=== PATIENT | female | born 1995 | race Caucasian/White ===

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

== ENCOUNTER 2018-04-13 09:28 | Observation (INO) ==
[2018-04-13] MEDS ORDERED: SODIUM CHLORIDE 0.9% 1000ML 1,000 ML IV STA (09:50)
[2018-04-13 10:05] LABS: Basophils # (auto) 0.02 K/uL (0-0.2); Basophils % (auto) 0.2 %; Eosinophils # (auto) 0.06 K/uL (0-0.5); Eosinophils % (auto) 0.7 %; Hematocrit (blood only) 45.4 % (37-47); Hemoglobin 15.9 g/dL (12.0-16.0); Immature Granulocytes # (auto) 0.01 K/uL (0.00-0.02); Immature Granulocytes % (auto) 0.1 %; Lymphocytes # (auto) 1.67 K/uL (1.2-3.4); Mean Corpuscular Volume 87.3 fL (80-100); Mean Platelet Volume 10.3 fL (7.4-10.4); Monocytes # (auto) 0.59 K/uL (0.11-0.59); Monocytes % (auto) 7.1 %; Neutrophils # (auto) 5.99 K/uL (1.4-6.5); Neutrophils % (auto) 71.9 %; Platelet Count 221 K/uL (130-400); RDW Coefficient of Variation 12.7 % (11.5-14.5); RDW Standard Deviation 40.8 fL (36.4-46.3); White Blood Count 8.34 K/uL (4.8-10.8)
[2018-04-13 10:06] LABS: Appearance Urine Cloudy (Clear); Bacteria Urine Automated 1+ (Negative); Color Urine Dark Yellow; Epithelial Cell Urine Auto >30 /lpf (0-5); Glucose Urine UA Negative (Negative); Ketones Urine Trace (Negative); Leukocyte Esterase Urine Trace (Negative); Nitrite Urine Positive (Negative); Protein Urine 1+ (Negative); Specific Gravity Urine 1.027 (1.000-1.030); Urobilinogen Urine Positive (Negative); pH Urine 6.5 (4.5-7.5)
[2018-04-13 10:08] LABS: Bilirubin Urine Negative (Negative); Ictotest Urine Negative (Negative)
[2018-04-13 10:24] LABS: Albumin Level 4.2 gm/dl (3.4-5.0); Calcium 9.3 mg/dl (8.5-10.1); Creatinine Clr Calc Pharmacy 86.3 ml/min; Est GFR (African American) 107.4; Est GFR (Non-African American) 92.6; Potassium 3.3 mmol/L (3.5-5.1)
[2018-04-13 10:27] LABS: Bilirubin,Total 0.6 mg/dl (0.2-1); Globulin 4.4 gm/dl (2.5-4.0); Total Protein 8.6 gm/dl (6.4-8.2)
[2018-04-13] MEDS ORDERED: ACETAMINOPHEN 1000 MG/100 ML IV IV STA (11:15)
[2018-04-13] MEDS ORDERED: IOVERSOL 100ml IV PRN (12:23)
--- NOTE | 2018-04-13 12:31 | CT Scan Report ---
CT abd pelvis oral and IV con CLINICAL HISTORY: RLQ abdominal pain COMPARISON STUDY: None. TECHNIQUE: The patient was scanned following administration of dilute oral contrast, and in a dynamic helical fashion during intravenous administration of 94 cc of Optiray 320. A dose lowering techniqu e was utilized adhering to the principles of ALARA. CT DOSE: 393.71 mGycm FINDINGS: Lower chest: The heart is normal in size and configuration, without pericardial effusion. The lung ba ses and pleural spaces are clear. Liver: The contrast-enhanced liver is normal in size, contour, and attenuation. There is no intrahepa tic biliary ductal dilatation. The hepatic veins and portal veins are patent. Gallbladder: Unremarkable. Spleen: Normal in size and attenuation. Pancreas: Unremarkable. Adrenal glands: Unremarkable. Kidneys: There is symmetric renal cortical enhancement. The kidneys are normal in size without hydron ephrosis. Bowel: There are no transition zones to indicate bowel obstruction. There is no acute diverticulitis. The appendix is dilated and fluid-filled measuring up to 16 mm in diameter. There is moderate periap pendiceal fat stranding. There is an appendicolith present. The findings are indicative of acute appe ndicitis. Peritoneum: There is no intraperitoneal free air or abdominal ascites. Vasculature: The abdominal aorta is normal in course and caliber. Adenopathy: None. Pelvic viscera: The bladder, and pelvic viscera are unremarkable. Skeletal structures: No destructive osseous lesions are seen. IMPRESSION: 1. Significantly inflamed dilated fluid-filled appendix with a 5 mm appendicolith at appendiceal base . The findings are indicative of acute appendicitis and surgical consultation is recommended Electronically signed by: Mak Schreiber M.D. 04/13/2018 12:29 PM
[2018-04-13] MEDS ORDERED: CIPROFLOXACIN 400 MG/200 ML BAG IV STA (12:56)
--- NOTE | 2018-04-13 12:56 | History & Physical Report ---
Date of Service April 13, 2018 Assessment & Plan (1) Appendicitis: acute appendicitis- for laparoscopic appendectomy, possible open operation. History of Present Illness Primary Care Provider: Soniya Chahal, in ER with 2-3 days of abd pain- dx'd with acute appendicitis CT scan confirmed Allergies Allergy/AdvReac Type Severity Reaction Status Date / Time Penicillins Allergy Intermediate hives Verified 04/13/18 10:23 Home Medications Home Medications Medication Instructions Recorded Confirmed Type medroxyprogesterone 150 mg IM Q3M 04/13/18 04/13/18 History propranolol 60 mg PO DAILY 04/13/18 04/13/18 History Past Med/Surg History Social History Feels Safe at Home: Yes Smoking Status: Never smoker Physical Exam 2 Vital Signs (Past 24 Hours): Last Vital Signs Temp 36.9 C 04/13/18 09:34 Pulse 82 04/13/18 11:51 Resp 20 04/13/18 11:51 BP 105/68 04/13/18 11:51 Pulse Ox 99 04/13/18 11:51 Constitutional: well developed and well nourished Eyes: PERRL, conjunctivae normal, anicteric sclerae Respiratory: normal respiratory effort; no respiratory distress Cardiovascular: Rate/Rhythm: regular rate and regular rhythm Gastrointestinal (Abdomen): Percussion/Palpation: + abdomen tender, + guarding and abdomen soft Skin: no rashes, warm and dry Psychiatric: Orientation: alert Results & Data Medications Administered Ioversol (Optiray 320 100ml) 94 ml IV ONCE PRN PRN Reason: Interaction Checking Stop: 04/17/18 12:22 Last Admin: 04/13/18 12:24 Dose: 94 ml
[2018-04-13] MEDS ORDERED: CIPROFLOXACIN 400MG / 200ML D5W IV ONE (13:04)
[2018-04-13] MEDS ORDERED: ROCURONIUM BROMIDE 10 MG/ML 5 ML VIAL ONE (13:09)
[2018-04-13] MEDS ORDERED: DEXAMETHASONE SOD INJ 4 MG/ML VIAL ONE (13:09)
[2018-04-13] MEDS ORDERED: MIDAZOLAM HCL 1 MG/ML 2ML VIAL ONE (13:09)
[2018-04-13] MEDS ORDERED: ONDANSETRON INJ 2 MG/ML 2 ML VIAL ONE (13:09)
[2018-04-13] MEDS ORDERED: SUCCINYLCHOLINE CHLORIDE 20 MG/ML 10 ML VIAL ONE (13:09)
[2018-04-13] MEDS ORDERED: GLYCOPYRROLATE 0.2 MG/ML VIAL ONE (13:09)
[2018-04-13] MEDS ORDERED: PROPOFOL IV EMULSION 10 MG/ML 20 ML VIAL IV ONE (13:09)
[2018-04-13] MEDS ORDERED: fentaNYL citrate 100 MCG/2 ML VIAL ONE ×2 (13:09→14:11)
[2018-04-13] MEDS ORDERED: LIDOCAINE HCL 2% 2 ML VIAL/AMP(20MG/ML) INFIL ONE (13:09)
[2018-04-13] MEDS ORDERED: NEOSTIGMINE METHYLSULFATE 5 MG/5 ML SYR ONE (13:09)
[2018-04-13] MEDS ORDERED: BUPIVACAINE 0.5 % 5 MG/1 ML MPF 30ML VIAL ONE (13:14)
[2018-04-13] MEDS ORDERED: metroNIDAZOLE 500 MG/100 ML BAG IV STA (13:15)
[2018-04-13] MEDS ORDERED: fentaNYL citrate 100 MCG/2 ML VIAL IV PRN (13:31)
[2018-04-13] MEDS ORDERED: DEXAMETHASONE SOD INJ 4 MG/ML VIAL IV PRN (13:31)
[2018-04-13] MEDS ORDERED: KETOROLAC 30 MG/ML VIAL IV PRN (13:31)
[2018-04-13] MEDS ORDERED: ONDANSETRON INJ 2 MG/ML 2 ML VIAL IV PRN ×2 (13:31→16:35)
[2018-04-13] MEDS ORDERED: ePHEDrine sulfate 50 MG/ML AMP IV PRN (13:31)
[2018-04-13] MEDS ORDERED: HYDROmorphone INJ 2 MG/ML SYR/VIAL IV PRN (13:31)
[2018-04-13] MEDS ORDERED: ATROPINE SULFATE 0.1 MG/ML 10ML SYR IV PRN (13:31)
--- NOTE | 2018-04-13 13:41 | Emergency Department Note ---
History of Present Illness General Chief Complaint: Abdominal Pain Stated Complaint: ABDOMINAL PAIN Source: patient Mode of arrival: ambulatory Limitations: no limitations History of Present Illness Provider Complaint: abdominal pain Onset (ago): 3 day(s) Pain Consistency: constant Location: RLQ Radiation: suprapubic Severity: moderate Maximum Pain Intensity: 6 Current Pain Intensity: 6 Quality: + aching Relieved By: + rest Exacerbated By: + movement Context: no foreign travel, no possible food poisoning, no sick contacts, no recent antibiotic use, no recent surgery/procedure, no recent injury and no history of similar episodes Associated Symptoms: + nausea, + vomiting and + chills; no diarrhea, no fever, no constipation, no dysuria and no hematuria Treatments prior to arrival: none This is a 23-year-old female patient presents emergency department today, ambulatory, complaining of right lower quadrant abdominal pain. The patient states on Monday evening, the pain began. This was associated with nausea and vomiting at that time. She states the nausea and vomiting has subsided, but the pain remains. She denies any fever, but does report chills. She states the pain initially was periumbilical, but is now in the right lower quadrant. She states it radiates across the suprapubic region. She states there is no aggravating or alleviating factors. Her last bowel movement was yesterday and was small, but otherwise normal. Last menstrual period was unknown, as the patient gets a Depakote shot. She is taken no medications for her symptoms. She does still have her appendix. She rates her pain 6/10 and describes it as achy and sharp. The patient's last meal was last night. Related Data Patient Confirmed : No Home Medications Home Medications Medication Instructions Recorded Confirmed Type medroxyprogesterone 150 mg IM Q3M 04/13/18 04/13/18 History propranolol 60 mg PO DAILY 04/13/18 04/13/18 History Allergies Allergy/AdvReac Type Severity Reaction Status Date / Time Penicillins Allergy Intermediate hives Verified 04/13/18 10:23 Past Med/Surg History Medical History Generalized headaches Social History Feels Safe at Home: Yes Smoking Status: Never smoker Review of Systems A total of 10 systems reviewed and were otherwise negative Physical Exam 2 Vital Signs: Vital Signs - 24 hr 04/13/18 09:34 04/13/18 09:54 04/13/18 10:19 Temperature 36.9 C Temperature Source Oral Sepsis Recent Feve r Within 48 Hours No Sepsis Action Take n by Nursing No Action Required Pulse Rate 79 Pulse Rate [Finger ] 74 Respiratory Rate 18 16 Blood Pressure 127/80 Blood Pressure [Ri ght Arm] 120/79 Blood Pressure Moon n 95 Blood Pressure Moon n [Right Arm] 92 Pulse Oximetry 99 99 98 Oxygen Delivery Me thod Room Air Room Air Room Air 04/13/18 11:51 04/13/18 13:18 Temperature Temperature Source Sepsis Recent Feve r Within 48 Hours Sepsis Action Take n by Nursing Pulse Rate Pulse Rate [Finger ] 82 100 H Respiratory Rate 20 16 Blood Pressure Blood Pressure [Ri ght Arm] 105/68 124/76 Blood Pressure Moon n Blood Pressure Moon n [Right Arm] 80 92 Pulse Oximetry 99 100 Oxygen Delivery Me thod Room Air Room Air Physical Exam: VITALS: Vitals are noted on the nurse's note and reviewed by myself. Vital signs stable. GENERAL: This is a 23-year-old white female, in no acute distress, nondiaphoretic, well-developed well-nourished. SKIN: The skin was without rashes, erythema, edema, or bruising. There is no tenting of the skin. Capillary reflex less than 2 seconds. HEAD: Normocephalic atraumatic. EARS: External auditory canals clear, tympanic membranes pearly mccarthy without erythema or effusion bilaterally. EYES: Pupils equal round and reactive to light and accommodation. Conjunctivae without injection, sclerae without icterus. Extraocular movements intact. NOSE: Patent, turbinates without inflammation or discharge. No sinus tenderness. MOUTH: Mucous membranes moist. Tonsils are not enlarged. Pharynx without erythema or exudate. Uvula midline. Airway patent. Tongue does not deviate. NECK: Supple without nuchal rigidity. No lymphadenopathy. No thyromegaly. Cervical spine is nontender. No JVD. HEART: Regular rate and rhythm without murmurs gallops or rubs. LUNGS: Clear to auscultation bilaterally without wheezes, rales or rhonchi. No dullness to percussion. No retractions or accessory muscle use. ABDOMEN: Positive bowel sounds x 4. Normal tympanic percussion. Suprapubic and right lower quadrant tenderness to palpation over McBurney's point. Referred tenderness with palpation of the left lower quadrant. Soft, without masses or organomegaly. Robin sign negative. No guarding. Positive rebound tenderness. MUSCULOSKELETAL: No muscle atrophy, erythema, or edema noted. Full range of motion without joint tenderness in all extremities. No tenderness to palpation. Normal gait. Strength 5/5 throughout. NEURO: Patient was alert and oriented to person place and time. Normal sensation to light and sharp touch. Deep tendon reflexes 2+ throughout. No focal neurological deficits. Course The patient was seen and evaluated as above. IV access obtained, labs drawn. The patient was medicated with IV normal saline solution and IV Tylenol for pain. Imaging performed and reviewed by myself and radiologist as above. Labs reviewed by myself. I discussed the findings with the patient at bedside. I discussed the case with Dr. Moon, general surgeon. He did agree to see and evaluate the patient. The patient was taken to the OR for appendectomy. Administered Medications Ioversol (Optiray 320 100ml) 94 ml IV ONCE PRN PRN Reason: Interaction Checking Stop: 04/17/18 12:22 Last Admin: 04/13/18 12:24 Dose: 94 ml Discontinued Medications Acetaminophen (Ofirmev) 1,000 mg IV NOW STA Stop: 04/13/18 11:16 Last Admin: 04/13/18 11:24 Dose: 1,000 mg Ciprofloxacin (Cipro) Confirm Administered Dose 400 mg IV .STK-MED ONE Stop: 04/13/18 13:05 Last Admin: 04/13/18 13:12 Dose: 400 mg Sodium Chloride (Nss 1000ml) 1,000 mls @ 999 mls/hr IV .Q1H1M STA Stop: 04/13/18 10:50 Last Infusion: 04/13/18 11:24 Dose: 0 mls/hr Admin: 04/13/18 10:19 Dose: 999 mls/hr Medical Decision Making Differential Diagnosis + peptic ulcer disease, + biliary pathology, + UTI, + obstruction, + mesenteric ischemia, + aortic pathology, + infections, + inflammatory bowel disease, + renal colic, + ectopic (female), + ovarian torsion (female), + tubo- ovarian abscesses (female), + pelvic inflammatory disease (female), + abdominal pain, + appendicitis, + calculus of kidney, + constipation, + diverticulitis, + endometriosis, + gastroenteritis, + pancreatitis and + small bowel obstruction Home Medications Current Medication List: was personally reviewed by me Laboratory Data Attestation: I reviewed the patient's lab results. No leukocytosis, anemia, thrombocytopenia. Renal, hepatic function, and electrolytes without significant abnormality. Lipase negative. Urine test negative. Urinalysis concerning for possible infection with bacteria nitrates. Result diagrams: 04/13/18 09:48 04/13/18 09:48 Lab Results 04/13/18 04/13/18 04/13/18 Range/Units 09:48 09:48 09:48 WBC 8.34 (4.8-10.8) K/uL RBC 5.20 (4.2-5.4) M/uL Hgb 15.9 (12.0-16.0) g/dL Hct 45.4 (37-47) % MCV 87.3 (80-100) fL MCH 30.6 (25-34) pg MCHC 35.0 (32-36) g/dL RDW Std Deviation 40.8 (36.4-46.3) fL RDW Coeff of Nuris 12.7 (11.5-14.5) % Plt Count 221 (130-400) K/uL MPV 10.3 (7.4-10.4) fL Immature Gran % (Auto) 0.1 % Neut % (Auto) 71.9 % Lymph % (Auto) 20.0 % Pershing % (Auto) 7.1 % Eos % (Auto) 0.7 % Baso % (Auto) 0.2 % Immature Gran # (Auto) 0.01 (0.00-0.02) K/uL Neut # (Auto) 5.99 (1.4-6.5) K/uL Lymph # (Auto) 1.67 (1.2-3.4) K/uL Pershing # (Auto) 0.59 (0.11-0.59) K/uL Eos # (Auto) 0.06 (0-0.5) K/uL Baso # (Auto) 0.02 (0-0.2) K/uL Sodium 136 (136-145) mmol/L Potassium 3.3 L (3.5-5.1) mmol/L Chloride 104 (98-107) mmol/L Carbon Dioxide 26 (21-32) mmol/L Anion Gap 6.0 (3-11) BUN 6 L (7-18) mg/dl Creatinine 0.89 (0.6-1.2) mg/dl Est Cr Clr Drug Dosing 86.3 ml/min Est GFR ( Amer) 107.4 Est GFR (Non-Af Amer) 92.6 BUN/Creatinine Ratio 7.0 L (10-20) Glucose 94 (70-99) mg/dl Calcium 9.3 (8.5-10.1) mg/dl Total Bilirubin 0.6 (0.2-1) mg/dl AST 58 H (15-37) U/L ALT 85 H (12-78) U/L Alkaline Phosphatase 124 H (45-117) U/L Total Protein 8.6 H (6.4-8.2) gm/dl Albumin 4.2 (3.4-5.0) gm/dl Globulin 4.4 H (2.5-4.0) gm/dl Albumin/Globulin Ratio 1.0 (0.9-2) Lipase 141 (73-393) U/L Urine Color Urine Appearance (Clear) Urine pH (4.5-7.5) Ur Specific Jansen (1.000-1.030) Urine Protein (Negative) Urine Glucose (UA) (Negative) Urine Ketones (Negative) Urine Blood (Negative) Urine Nitrite (Negative) Urine Bilirubin (Negative) Urine Urobilinogen (Negative) Ur Leukocyte Esterase (Negative) Urine WBC (Auto) (0-5) /hpf Urine RBC (Auto) (0-4) /hpf U Hyaline Cast (Auto) (0-5) /lpf U Epithel Cells (Auto) (0-5) /lpf Urine Bacteria (Auto) (Negative) POC Ur Test NEG (NEG) 04/13/18 Range/Units 09:48 WBC (4.8-10.8) K/uL RBC (4.2-5.4) M/uL Hgb (12.0-16.0) g/dL Hct (37-47) % MCV (80-100) fL MCH (25-34) pg MCHC (32-36) g/dL RDW Std Deviation (36.4-46.3) fL RDW Coeff of Nuris (11.5-14.5) % Plt Count (130-400) K/uL MPV (7.4-10.4) fL Immature Gran % (Auto) % Neut % (Auto) % Lymph % (Auto) % Pershing % (Auto) % Eos % (Auto) % Baso % (Auto) % Immature Gran # (Auto) (0.00-0.02) K/uL Neut # (Auto) (1.4-6.5) K/uL Lymph # (Auto) (1.2-3.4) K/uL Pershing # (Auto) (0.11-0.59) K/uL Eos # (Auto) (0-0.5) K/uL Baso # (Auto) (0-0.2) K/uL Sodium (136-145) mmol/L Potassium (3.5-5.1) mmol/L Chloride (98-107) mmol/L Carbon Dioxide (21-32) mmol/L Anion Gap (3-11) BUN (7-18) mg/dl Creatinine (0.6-1.2) mg/dl Est Cr Clr Drug Dosing ml/min Est GFR ( Amer) Est GFR (Non-Af Amer) BUN/Creatinine Ratio (10-20) Glucose (70-99) mg/dl Calcium (8.5-10.1) mg/dl Total Bilirubin (0.2-1) mg/dl AST (15-37) U/L ALT (12-78) U/L Alkaline Phosphatase (45-117) U/L Total Protein (6.4-8.2) gm/dl Albumin (3.4-5.0) gm/dl Globulin (2.5-4.0) gm/dl Albumin/Globulin Ratio (0.9-2) Lipase (73-393) U/L Urine Color Dark Yellow Urine Appearance Cloudy H (Clear) Urine pH 6.5 (4.5-7.5) Ur Specific Jansen 1.027 (1.000-1.030) Urine Protein 1+ H (Negative) Urine Glucose (UA) Negative (Negative) Urine Ketones Trace H (Negative) Urine Blood 1+ H (Negative) Urine Nitrite Positive H (Negative) Urine Bilirubin Negative (Negative) Urine Urobilinogen Positive H (Negative) Ur Leukocyte Esterase Trace H (Negative) Urine WBC (Auto) 10-30 H (0-5) /hpf Urine RBC (Auto) 0-4 (0-4) /hpf U Hyaline Cast (Auto) 1-5 (0-5) /lpf U Epithel Cells (Auto) >30 H (0-5) /lpf Urine Bacteria (Auto) 1+ H (Negative) POC Ur Test (NEG) Imaging Data Radiologist's Impression: CT abd pelvis oral and IV con CLINICAL HISTORY: RLQ abdominal pain COMPARISON STUDY: None. TECHNIQUE: The patient was scanned following administration of dilute oral contrast, and in a dynamic helical fashion during intravenous administration of 94 cc of Optiray 320. A dose lowering technique was utilized adhering to the principles of ALARA. CT DOSE: 393.71 mGycm FINDINGS: Lower chest: The heart is normal in size and configuration, without pericardial effusion. The lung bases and pleural spaces are clear. Liver: The contrast-enhanced liver is normal in size, contour, and attenuation. There is no intrahepatic biliary ductal dilatation. The hepatic veins and portal veins are patent. Gallbladder: Unremarkable. Spleen: Normal in size and attenuation. Pancreas: Unremarkable. Adrenal glands: Unremarkable. Kidneys: There is symmetric renal cortical enhancement. The kidneys are normal in size without hydronephrosis. Bowel: There are no transition zones to indicate bowel obstruction. There is no acute diverticulitis. The appendix is dilated and fluid-filled measuring up to 16 mm in diameter. There is moderate periappendiceal fat stranding. There is an appendicolith present. The findings are indicative of acute appendicitis. Peritoneum: There is no intraperitoneal free air or abdominal ascites. Vasculature: The abdominal aorta is normal in course and caliber. Adenopathy: None. Pelvic viscera: The bladder, and pelvic viscera are unremarkable. Skeletal structures: No destructive osseous lesions are seen. IMPRESSION: 1. Significantly inflamed dilated fluid-filled appendix with a 5 mm appendicolith at appendiceal base. The findings are indicative of acute appendicitis and surgical consultation is recommended Electronically signed by: Mak Schreiber M.D. 04/13/2018 12:29 PM Blood Pressure Blood Pressure Findings: Normal blood pressure MDM Narrative This 23-year-old female patient presents emergency department today complaining of right lower quadrant abdominal pain. The pain began periumbilically and has now migrated to the right lower quadrant. She does have positive referred and rebound tenderness on examination. Labs did not show any leukocytosis. The patient has been afebrile. CT scan of the abdomen and pelvis with IV and oral contrast does show a significantly inflamed, dilated, fluid-filled appendix with a 5 mm appendicolith at the appendiceal base. This is consistent with an acute appendicitis. I contacted the general surgeon. He did see and evaluate the patient. The patient was taken to the OR for appendectomy. Please see Dr. Moon's dictation regarding ongoing management care of this patient. The chart was completed utilizing [employer] Speech voice recognition software. Grammatical errors, random word insertions, pronoun errors, and incomplete sentences are an occasional consequence of this system due to software limitations, ambient noise, and hardware issues. Any formal questions or concerns about the content, text, or information contained within the body of this dictation should be directly addressed to the provider for clarification. Impression & Plan Acute appendicitis Discharge Plan Visit Data *Final* Discharge Date/Time: 04/13/18 13:22 Chief Complaint: Abdominal Pain Stated Complaint: ABDOMINAL PAIN ED Provider: Ap Blunt ED Midlevel Provider: Keeley Miller Discharge Problem: Acute appendicitis Patient Disposition: Still a Patient Discharge Instructions Interventions: ED Discharge Assessment Last Done: 04/13/18 13:22
--- NOTE | 2018-04-13 13:46 | Anesthesiology Consultation ---
Date of Service April 13, 2018 Assessment & Plan Chart Review Chart Review: Acceptable Risk for Surgery and Patient NOT seen in Pre Admission Testing ASA ASA2E Proposed Anesthesia Anesthesia Type: General Risk / Benefits Reviewed With: PT / POA / Parent / Guardian, Accepts Plan and Informed Consent Obtained NPO Date Last Intake of Fluids: 04/13/18 Time Last Intake of Fluids: 12:00 Last Intake of Fluids Comment: CT contrast at 1200 Date Last Intake of Solids: 04/12/18 Time Last Intake of Solids: 18:00 History Surgery Operation Date: 04/13/18 09:15 Proposed Procedures p Laparoscopic Appendectomy - Maxim Moon MD, FACS Height/Weight Height: 5 ft 2 in Weight: 61.6 kg Allergies Allergy/AdvReac Type Severity Reaction Status Date / Time Penicillins Allergy Intermediate hives Verified 04/13/18 10:23 Medications Home Medications Medication Instructions Recorded Confirmed Last Taken medroxyprogesterone 150 mg IM Q3M 04/13/18 04/13/18 Unknown propranolol 60 mg PO DAILY 04/13/18 04/13/18 Unknown Active Medications Generic Name Dose Route Start Last Admin Trade Name Freq PRN Reason Stop Dose Admin Ioversol 94 ml 04/13/18 12:23 04/13/18 12:24 Optiray 320 100ml IV 04/17/18 12:22 94 ml ONCE PRN Administration Interaction Checking Past Medical History Medical History Generalized headaches Social History Smoking Status: Never smoker Physical Exam Vital Signs Last Vital Signs Temp 37.1 C 04/13/18 13:38 Pulse 92 H 04/13/18 13:38 Resp 16 04/13/18 13:38 BP 115/80 04/13/18 13:38 Pulse Ox 100 04/13/18 13:38 ENMT Mouth: no TMJ abnormality Thyromental Distance: > or= 3.5 Finger Breadths Mallampati Class: II Neck normal visual inspection Respiratory Auscultation: lungs clear to auscultation bilaterally Cardiovascular Rate/Rhythm: regular rate and regular rhythm Neurologic moves all extremities Psychiatric Orientation: alert and oriented x 3 Testing Laboratory Results 04/13/18 09:48 04/13/18 09:48 Urine Color Dark Yellow 04/13/18 09:48 Urine Appearance Cloudy (Clear) H 04/13/18 09:48 Urine pH 6.5 (4.5-7.5) 04/13/18 09:48 Ur Specific [place] 1.027 (1.000-1.030) 04/13/18 09:48 Urine Protein 1+ (Negative) H 04/13/18 09:48 Urine Glucose (UA) Negative (Negative) 04/13/18 09:48 Urine Ketones Trace (Negative) H 04/13/18 09:48 Urine Nitrite Positive (Negative) H 04/13/18 09:48 Ur Leukocyte Esterase Trace (Negative) H 04/13/18 09:48 Urine WBC (Auto) 10-30 /hpf (0-5) H 04/13/18 09:48 Urine RBC (Auto) 0-4 /hpf (0-4) 04/13/18 09:48 U Hyaline Cast (Auto) 1-5 /lpf (0-5) 04/13/18 09:48 U Epithel Cells (Auto) >30 /lpf (0-5) H 04/13/18 09:48 Urine Bacteria (Auto) 1+ (Negative) H 04/13/18 09:48 04/13/18 09:48 POC Ur Test NEG
[2018-04-13] MEDS ORDERED: ESMOLOL HCL INJ 10 MG/ML 10ML VIAL IV ONE (14:16)
[2018-04-13] MEDS ORDERED: ACETAMINOPHEN 1,000 MG/100 ML VIAL IV ONE (15:00)
--- NOTE | 2018-04-13 15:00 | Operative Report ---
Post Operative Report Pre & Post Diagnosis Operation Date: 04/13/18 09:15 Pre-Op Diagnosis: Acute Appendicitis Post-Op Diagnosis: Acute Appendicitis same, severe Procedure Operation Date: 04/13/18 09:15 Actual Procedures p Laparoscopic Appendectomy(Not Applicable) - Maxim Moon MD, FACS same Surgeon Maxim Moon MD, FACS Soft Crab Shedder nurses Estimated Blood Loss 20 Findings Consistent with Post-Op Diagnosis Specimens appendix Description of Procedure see dictated note I attest to the content of the Intraoperative Record and any orders documented therein. Any exceptions are noted below.
--- NOTE | 2018-04-13 15:15 | Operative Report ---
DATE OF OPERATION: 04/13/2018 NAME OF OPERATION: Laparoscopic appendectomy. PREOPERATIVE DIAGNOSIS: Acute appendicitis. POSTOPERATIVE DIAGNOSIS: Acute appendicitis. STAFF SURGEON: Maxim Moon MD ANESTHESIA: General. DESCRIPTION OF PROCEDURE: The patient was brought in the operating room and placed on the operating table in supine position. Her abdomen was prepped and draped in usual fashion. Pneumatic stockings, orogastric tube were placed. 0.5% plain Marcaine was used to anesthetize all incisions. An incision was made in the upper part of the umbilicus, carrying dissection down to the fascia, placing a Veress needle producing pneumoperitoneum. An 11 mm port was placed at this level and then under visualization, a 5 mm port placed suprapubically and a 12 mm port placed in the left lower quadrant. The appendix was retrocecal and adherent. It was inflamed. The base of the appendix was visible and dissected free and transected using the Endo-SCOOTER stapler. Then, using additional loads, the mesoappendix was transected as well as using 10 mm clips. The appendix was dissected away from the retrocecal area. It was very adherent. It was not ruptured. The appendix was placed in an Endobag, and after appropriate irrigation and hemostasis, the Endobag was removed through the left lower quadrant site. All ports removed. The fascia in the left lower quadrant and umbilical area closed using interrupted 0 Vicryl suture. Skin reapproximated using subcuticular 4-0 Monocryl. Dermabond was used at the umbilicus and suprapubic area and Steri-Strips in the left lower quadrant. The patient transferred to the recovery room in stable condition. I attest to the content of the Intraoperative Record and any orders documented therein. Any exception s are noted below.
--- NOTE | 2018-04-13 15:55 | Anesthesiology Progress Note ---
Date of Service April 13, 2018 Anesthesia Post Procedure Vital Signs Vital Signs: Temp Pulse Pulse Resp BP BP Pulse Ox 04/13/18 15:51 37.0 C 72 16 104/75 100 04/13/18 15:40 60 21 100 04/13/18 15:36 61 22 100 04/13/18 15:35 61 18 108/73 100 04/13/18 15:30 62 18 100/69 100 04/13/18 15:25 62 17 101/73 100 04/13/18 15:20 63 16 100 04/13/18 15:15 66 14 100 04/13/18 15:11 65 14 100 04/13/18 15:07 36.3 C L 68 14 105/73 100 04/13/18 13:38 37.1 C 92 H 16 115/80 100 04/13/18 13:18 100 H 16 124/76 100 04/13/18 12:41 60 23 91 04/13/18 11:51 82 20 105/68 99 04/13/18 10:19 74 16 120/79 98 04/13/18 09:54 99 04/13/18 09:34 36.9 C 79 18 127/80 99 Pain Intensity Abdomen: Pain Intensity: 0 Notes Mental Status: alert / awake / arousable Patient Amnestic to Procedure: Yes Nausea / Vomiting: adequately controlled Pain: adequately controlled Airway Patency, RR, SpO2: stable & adequate BP & HR: stable & adequate Hydration State: stable & adequate Anesthetic Complications: no major complications apparent
[2018-04-13] MEDS ORDERED: PROMETHAZINE HCL 12.5 MG in SODIUM CHLORIDE 0.9% 50 ML IV PRN (16:35)
[2018-04-13] MEDS ORDERED: HYDROCODONE/ACETAMOPHEN 5/325MG TAB PO PRN ×2 (16:35)
[2018-04-13] MEDS ORDERED: MoRPHine SULFATE 4 MG/ML 1 ML CARP\\VIAL IV PRN (16:35)
[2018-04-13] MEDS ORDERED: MoRPHine SULFATE 2 MG/ML CARP IV PRN (16:35)
[2018-04-13] MEDS ORDERED: IBUPROFEN 600 MG TAB PO PRN (16:35)
[2018-04-13] MEDS: SODIUM CHLORIDE 0.9% 500 ML IV SCH ×2 (16:51→22:16)
[2018-04-13] MEDS: metroNIDAZOLE 500 MG/100 ML BAG IV SCH (22:16)
[2018-04-14] MEDS: SODIUM CHLORIDE 0.9% 500 ML IV SCH (05:14)
[2018-04-14] MEDS: metroNIDAZOLE 500 MG/100 ML BAG IV SCH ×3 (05:15→22:24)
--- NOTE | 2018-04-14 06:01 | Progress Note ---
Date of Service April 14, 2018 Assessment & Plan (1) Acute appendicitis: appendix was severely inflamed and adherent cont IV atbx- adv diet- probable d/c tomorrow Acute appendicitis type: with localized peritonitis Appendicitis abscess presence: without abscess Appendicitis gangrene presence: without gangrene Appendicitis perforation presence: without perforation Qualified Code (s): K35.30 - Acute appendicitis with localized peritonitis, without perforation or gangrene Subjective doing well- elva some liquids Physical Exam 2 Vital Signs (Past 24 Hours): Last Vital Signs Temp 37.1 C 04/14/18 04:00 Pulse 80 04/14/18 04:00 Resp 16 04/14/18 04:00 BP 102/64 04/14/18 04:00 Pulse Ox 97 04/14/18 04:00 abd- soft
[2018-04-14] MEDS: PROPRANOLOL HCL 60 MG LA CAP PO SCH (09:40)
--- NOTE | 2018-04-14 10:00 | Anesthesiology Progress Note ---
Date of Service April 14, 2018 Anesthesia Post Procedure Vital Signs Vital Signs: Temp Pulse Pulse Resp BP BP Pulse Ox 04/14/18 07:30 37.0 C 84 18 102/63 96 04/14/18 04:00 37.1 C 80 16 102/64 97 04/13/18 22:55 36.9 C 79 16 100/61 98 04/13/18 19:39 37.3 C 69 18 102/67 99 04/13/18 18:26 37.4 C 82 18 107/67 98 04/13/18 17:26 36.7 C 79 16 111/74 97 04/13/18 16:55 36.6 C 72 16 110/73 98 04/13/18 16:05 37.0 C 61 17 106/76 100 04/13/18 15:55 61 17 106/76 100 04/13/18 15:51 37.0 C 60 72 17 104/75 100 04/13/18 15:50 61 17 111/76 100 04/13/18 15:45 62 22 104/75 100 04/13/18 15:40 60 21 100 04/13/18 15:36 61 22 100 04/13/18 15:35 61 18 108/73 100 04/13/18 15:30 62 18 100/69 100 04/13/18 15:25 62 17 101/73 100 04/13/18 15:20 63 16 100 04/13/18 15:15 66 14 100 04/13/18 15:11 65 14 100 04/13/18 15:07 36.3 C L 68 14 105/73 100 04/13/18 13:38 37.1 C 92 H 16 115/80 100 04/13/18 13:18 100 H 16 124/76 100 04/13/18 12:41 60 23 91 04/13/18 11:51 82 20 105/68 99 04/13/18 10:19 74 16 120/79 98 Pain Intensity Abdomen: Pain Intensity: 4 Notes Mental Status: alert / awake / arousable Patient Amnestic to Procedure: Yes Nausea / Vomiting: adequately controlled Pain: adequately controlled Airway Patency, RR, SpO2: stable & adequate BP & HR: stable & adequate Hydration State: stable & adequate Anesthetic Complications: no major complications apparent Notes: POD #1 s/p lap appendectomy. Doing well, has been up and ambulating, tolerating PO without problems. No complaints. VSS
[2018-04-15] MEDS: metroNIDAZOLE 500 MG/100 ML BAG IV SCH (06:30)
--- NOTE | 2018-04-15 07:41 | Discharge Summary ---
PRINCIPAL DIAGNOSIS: Acute appendicitis. PROCEDURES: The patient underwent laparoscopic appendectomy. HISTORY OF PRESENT ILLNESS: The patient is a 23-year-old female presented to the Emergency Room with acute abdominal pain and found with acute appendicitis. HOSPITAL COURSE: She was taken to the operating room where she underwent laparoscopic appendectomy. She tolerated it very well. Her appendix was relatively inflamed and necrotic, but did not have surrounding abscess. She has been kept on IV antibiotics. She has done well and is felt stable for discharge home today on p.o. antibiotics to be followed in the surgical clinic.
[2018-04-15] MEDS: PROPRANOLOL HCL 60 MG LA CAP PO SCH (07:56)
== END 2018-04-15 12:28 | disposition home or self-care (01) ==
LOC: ED 09:28 → OR 13:22 → 3W 13:22 → OR 13:31

== ENCOUNTER 2022-04-18 06:56 | Inpatient (IN) ==
--- NOTE | 2022-04-12 15:11 | Anesthesiology Consultation ---
Date of Service April 12, 2022 Assessment & Plan (1) Encounter for pre-operative examination: - anesthesia concerns: with first patient had a spinal anesthesia and was able to feel her abdomen being cut and then was placed under general anesthesia. - COVID screening: Per per assessment nurse on 04/12/2022: Travel screen negative, no known COVID-19 positive contacts or current COVID-19 related symptoms in past 2 weeks. To surgeon's discretion if preop COVID testing is needed. Chart Review Chart Review: Acceptable Risk for Surgery and Patient NOT seen in Pre Admission Testing History Surgery Operation Date: 04/18/22 09:05 Proposed Procedures p Section (Delivery of Baby Through Abdominal Incision) - Kelley Barton MD, FACOG Height/Weight Height: 5 ft 2 in Weight: 67.132 kg Allergies Allergy/AdvReac Type Severity Reaction Status Date / Time Penicillins Allergy Intermediate hives Verified 04/12/22 14:05 Medications Home Medications Medication Instructions Recorded Confirmed Last Taken prenat.vits,gabriela,[id number] 1 tab PO DAILY 09/06/21 04/12/22 Unknown Past Medical History Medical History (Updated 04/12/22 @ 15:09 by Maggy Salomon PA-C) ADHD (attention deficit hyperactivity disorder) no medications Depression pt denies Generalized headaches History of anesthesia reaction with first patient had a spinal anesthesia and was able to feel her abdomen being cut and then was placed under general anesthesia. History of migraine Past Family History Family History Grandmother Cancer Other No family history of adverse response to anesthesia Denies family history of Ovarian cancer Prostate cancer Myocardial infarction Breast cancer Colorectal cancer Past Surgical History Surgical History (Updated 04/12/22 @ 15:11 by Maggy Salomon PA-C) Hx of appendectomy 04/13/1819 Grade 1 view, MAC 3, ETT 7. S/P section 05/18/20 S/P wisdom tooth extraction Social History Smoking Status: Never smoker Do You Dip or Chew Tobacco: No Hx Alcohol Use: Yes alcohol intake frequency: a few times a month Hx Substance Use: No
--- NOTE | 2022-04-14 09:11 | History & Physical Report ---
Date of Service April 14, 2022 Assessment & Plan (1) Previous delivery affecting , antepartum: (2) with 39 completed weeks gestation: Plan Patient desires repeat c/s. Declines JEAN CLAUDE. Was interested in TL unfortunately did not express this interest until 37 weeks and [place] insurance so paperwork not signed and not time for 30 day waiting period. She expresses understanding. Risks of surgery discussed--anesthesia, bleeding, transfusion, infection, poor wound healing, damage to surrounding structures, need for further surgery or hospitalization, heart attack, blood clot, stroke, , injury to baby. Consent reviewed and signed. Questions answered. Surgery planned for 04/18/22. History of Present Illness Chief Complaint: presents for repeat c/s Primary Care Provider: Soniya Chahal DO Patient is a 27yowf who presents at 39+ weeks for elective repeat c/s. This has been uncomplicated. Previous delivery was 36 hours labor, unsuccessful push, nrfht and c/s. She declines JEAN CLAUDE. and Delivery Plans Previous *plans for repeat CS C/S SCHEDULED FOR 04/18/[address] LIU Rubella equivocal *needs MMR after delivery OB Labs: Blood Type A Positive 09/15/21 Antibody Screen NEGATIVE 09/15/21 Hemoglobin 12.1 g/dl (12.0-16.0) 02/02/22 Hematocrit 35.6 % (34.1-44.9) 02/02/22 Mean Corpuscular Volume 86.9 fL (80-100) 09/15/21 Platelet Count 327 K/uL (130-400) 09/15/21 Rubella IgG Antibody Equivocal (Immune) L 09/15/21 Rapid Plasma Reagin Nonreactive (Nonreactive) 02/02/22 Hepatitis B Surface Antigen. NON-REACTIVE (NON-REACTIVE) 09/15/21 Hepatitis C Antibody (EIA) NON-REACTIVE (NON-REACTIVE) 09/15/21 HIV (1&2) Ag and Ab Confirmation NON-REACTIVE (NON-REACTIVE) 09/15/21 Glucose 1 Hour 50 gm Load 120 mg/dl (70-130) 02/02/22 Maternal Serum Alpha Fetoprotein 34.3 ng/mL 11/10/21 OB Optional Labs: Chlamydia trachomatis RNA NOT DETECTED (NOT DETECTED) 09/15/21 Neisseria gonorrhoeae RNA NOT DETECTED (NOT DETECTED) 09/15/21 Thyroid Stimulating Hormone (TSH) 0.975 uIu/ml (0.300-4.500) 01/26/18 Alpha Fetoprotein Triple Screen SEE NOTE 11/10/21 Labs Reviewed: cf/sma-negative--mln cfdna-low risk--mln afp neg gbs neg Allergies Allergy/AdvReac Type Severity Reaction Status Date / Time Penicillins Allergy Intermediate hives Verified 04/14/22 09:00 Home Medications Medication Instructions Recorded Confirmed Type prenat.vits,gabriela,[id number] 1 tab PO DAILY 09/06/21 04/14/22 History Patient History Medical History ADHD (attention deficit hyperactivity disorder) no medications Depression pt denies Generalized headaches History of anesthesia reaction with first patient had a spinal anesthesia and was able to feel her abdomen being cut and then was placed under general anesthesia. History of migraine Surgical History Hx of appendectomy 04/13/1819 Grade 1 view, MAC 3, ETT 7. S/P section 05/18/20 S/P wisdom tooth extraction Family History Grandmother Cancer Other No family history of adverse response to anesthesia Denies family history of Ovarian cancer Prostate cancer Myocardial infarction Breast cancer Colorectal cancer Social History Smoking Status: Never smoker Second Hand Exposure: No; Hx Alcohol Use: Yes Hx Substance Use: No Preferred Language: Turkish Communication Ability: Effective Visual Impairment: Limited Hearing Ability: Normal Sales Merchandise Associate Required: No Beliefs That Will Affect Care: None marital status: Single marital status details: ike Dewitt Turkish (24) [phone] Current Living Situation: Family and Significant Other Current Living Situation Comment: Lives with ike and his mother, son, 2 dogs current occupational status: employed current occupation: [employer] Feels Safe at Home: Yes Childhood Exposure to Second-Hand Smoke: No caffeine: Yes (Coffee and tea occasionally.) during the past year weight has: remained stable Dental Care, Regularly: Yes Physical Activity Frequency: Daily Seatbelt Use: always Sunscreen Use: No Assistive Devices: None OB History Past Pregnancies Del. Date GA wks Lbr Lgth wt Sex Type del Anes Place Del Prov ? Com ment 05/18/20 40 36 8-3 M Epidural Other [facility] No arrest of descent, decels [facility] BRUSHER History noncontributory Physical Exam Constitutional: WD/WN, vitals as above Neck: trachea midline, no thyromegaly Respiratory: normal respiratory effort, lungs clear to auscultation Cardiovascular: RRR, no murmur, no edema Extremities: no calf tenderness and no edema Gastrointestinal (Abdomen): soft, gravid nt Psychiatric: A+Ox3, euthymic affect Coding Level of Care Code None Diagnoses Previous delivery affecting , antepartum O34.219 with 39 completed weeks gestation Z3A.39
[~2022-04-18 06:56] MED LIST: CITRIC ACID/SODIUM CITRATE 15 ML UDC PO SCH; ceFAZolin 2000MG 2,000 MG/15 ML SYR IV SCH
--- NOTE | 2022-04-18 07:12 | History & Physical Bridge Note ---
Date of Service April 18, 2022 History & Physical Bridge Note I have examined the patient, reviewed the History & Physical and in the interval since the performance of the History & Physical I have noted the following changes of clinical significance: no changes noted
[2022-04-18] MEDS ORDERED: LACTATED RINGER'S 1,000 ML IV SCH ×2 (07:15→12:00)
[2022-04-18 07:27] LABS: Basophils # (auto) 0.04 K/uL (0-0.2); Basophils % (auto) 0.3 %; Eosinophils # (auto) 0.08 K/uL (0-0.50); Eosinophils % (auto) 0.6 %; Hematocrit (blood only) 33.5 % (34.1-44.9); Hemoglobin 10.9 g/dl (12.0-16.0); Immature Granulocytes # (auto) 0.06 K/uL (0.00-0.02); Immature Granulocytes % (auto) 0.5 %; Lymphocytes % (auto) 22.6 %; Mean Corpuscular Hgb Conc 32.5 g/dL (32.0-36.0); Mean Corpuscular Volume 82.9 fL (80.0-100.0); Mean Platelet Volume 11.2 fL (9.4-12.3); Monocytes # (auto) 0.62 K/uL (0.24-0.82); Neutrophils # (auto) 8.79 K/uL (1.4-6.5); Platelet Count 299 K/uL (130-400); RDW Coefficient of Variation 13.2 % (11.5-14.5); Red Blood Count 4.04 M/uL (3.93-5.22); White Blood Count 12.39 K/ul (4.8-10.8)
[2022-04-18] MEDS ORDERED: OXYTOCIN 10 UNITS/ML 10ML VIAL ONE (08:18)
[2022-04-18] MEDS ORDERED: fentaNYL citrate 100 MCG/2 ML VIAL ONE (08:19)
[2022-04-18] MEDS ORDERED: MoRPHine SULFATE PF 1 MG/ML 10 ML AMP/VIAL ONE (08:19)
[2022-04-18] MEDS: LACTATED RINGER'S 1,000 ML IV SCH (08:32)
[2022-04-18] MEDS ORDERED: NALOXONE HCL 1 MG in SODIUM CHLORIDE 0.9% 1000ML 1,000 ML IV PRN (10:07)
[2022-04-18] MEDS ORDERED: ePHEDrine sulfate 50 MG/ML AMP IV PRN (10:07)
[2022-04-18] MEDS ORDERED: LACTATED RINGER'S 500 ML IV PRN (10:07)
[2022-04-18] MEDS ORDERED: NALOXONE HCL 0.08 MG in SYRINGE 1.8 ML IV PRN (10:07)
[2022-04-18] MEDS ORDERED: MEPERIDINE HCL 25 MG/ML CARP/VIAL IV PRN (10:07)
[2022-04-18] MEDS ORDERED: NALBUPHINE HCL INJ 10 MG/ML AMP IV PRN (10:07)
[2022-04-18] MEDS ORDERED: KETOROLAC 30 MG/ML VIAL IV PRN (10:07)
[2022-04-18] MEDS ORDERED: MoRPHine SULFATE PF 1 MG/ML 10 ML AMP/VIAL INT SPINAL ONE (10:07)
[2022-04-18] MEDS ORDERED: diphenhydrAMINE 50 MG/ML VIAL IV PRN (10:07)
[2022-04-18] MEDS ORDERED: NALOXONE HCL 0.4 MG/1 ML VIAL/CARP IV PRN (10:07)
[2022-04-18] MEDS ORDERED: ONDANSETRON INJ 2 MG/ML 2 ML VIAL IV PRN (10:07)
[2022-04-18] MEDS ORDERED: DC INTRASPINAL MORPHINE SCH (10:15)
[2022-04-18] MEDS ORDERED: SODIUM CHLORIDE 0.9% 1000ML 1,000 ML IV SCH (10:15)
[2022-04-18] MEDS ORDERED: NO NARCOTICS OR SEDATIVES SCH (10:15)
[2022-04-18] MEDS ORDERED: SENNA 8.6 MG TAB PO PRN (10:48)
[2022-04-18] MEDS ORDERED: BENZOCAINE 20% AER SPR 82.5 GM CAN EXT PRN (10:48)
[2022-04-18] MEDS ORDERED: MAGNESIUM HYDROXIDE SUSP 30 ML UDC PO PRN (10:48)
[2022-04-18] MEDS ORDERED: DIPHTHERIA/TETANUS/PERTUSSIS 0.5mL SYR/VIAL (Age 7+yrs) IM ONE (10:48)
[2022-04-18] MEDS ORDERED: HYDROCORTISONE ACETATE 25 MG SUPP PR PRN (10:48)
--- NOTE | 2022-04-18 10:53 | Operative Report ---
PG Post Operative Report Pre & Post Diagnosis Operation Date: 04/18/22 08:55 Pre-Op Diagnosis: 1. Previous desires repeat 2. at 39 weeks Post-Op Diagnosis: 1. Previous desires repeat 2. at 39 weeks I identified the patient and participated in the time-out.: Yes Procedure Operation Date: 04/18/22 08:55 Actual Procedures p repeat lower transverse Section (Delivery of Baby Through Abdominal Incision) Live female at 1017(Bilateral) - Kelley Barton MD, FACOG Surgeon Kelley Barton MD, FACOG Air Conditioner Installer Helper Abby Crocker RN, [facility], [facility] Estimated Blood Loss 500 Findings Consistent with Post-Op Diagnosis viable female in cephalic presentation, apgars 9/9, nl utx/tubes/ovs Fluids 1000cc Specimens none Drains gomes Anesthesia Type Spinal Complications none Disposition Accompanied Patient To Recovery: Yes Disposition: L&D Indications Patient is a 27yowf who presents for repeat c/s. She srom when waiting for the or for clear fluid and started to contract. Description of Procedure The patient was taken to the operating room where she was identified verbally and by bracelet. She was seated on the operating table where a spinal anest hetic was placed by anesthesia. She was then placed in the supine position with a leftward tilt. A Gomes catheter was placed sterilely. the patient was prepped and draped in a normal standard fashion. the anesthetic was tested and found to be adequate. A time-out was held, identifying correct patient, procedure, positioning and preoperative antibiotics. There were no concerns. A Pfannenstiel skin incision was made with a knife and taken down to the underlying layer of fascia with the knife and Bovie electrocautery. Bleeding was attended to with the Bovie. The fascia was incised in the midline with the knife and taken out laterally with scissors. The superior edge of the fascial incision was grasped, elevated and the underlying layer of rectus muscle was taken off bluntly and with scissors. In a similar fashion, the inferior edge of the fascial incision was grasped, elevated and the underlying layer of rectus muscle was taken off bluntly and with scissors. The muscles were bluntly in the midline. The peritoneum was entered bluntly. The incision was then stretched. The bladder blade was placed. The vesicouterine peritoneum was identified, entered with scissors and taken out laterally with scissors. The bladder flap was created digitally A hysterotomy incision was scored with a knife and the incision was stretched superiorly and inferiorly with the chea tor's fingers. The operators hand was placed into the incision and the head was delivered atraumatically. No nuchal cord. The nose and mouth were bulb suctioned. the rest of the infant was then delivered without difficulty. The nose and mouth were again bulb suctioned. The cord was clamped and cut and the infant was then handed off to the awaiting sales representative health insurance for drying and attention. Cord blood and segment were obtained. The placenta was Manually extracted. The uterus was exteriorized and cleared of all clot and debris with moistened laparotomy sponges. The hysterotomy incision was repaired in two layers, the first in a running locked layer, the second in an imbricating layer. Hemostasis was noted to be good. Posterior cul-de-sac was irrigated and cleared of all clot and debris. The hysterotomy incision was again inspected and found to be hemostatic. the uterus was reinteriorized. Hysterotomy incision was again inspected and found to be hemostatic. Rectus muscles were reapproximated with several interrupted stitches of 0 Vicryl. The fascia was then reapproximated with 0 Vicryl starting at the edges and meeting in the midline. The subcuticular tissues were copiously irrigated and bleeding was attended to with cautery. The skin was then closed with 4-0 Vicryl in a subcuticular fashion. All spnge, lap and needle counts correct x 2. Patient was taken to the recovery room in stable condition. I attest to the content of the Intraoperative Record and any orders documented therein. Any exceptions are noted below. OB Procedure Charges [id number]
[2022-04-18] MEDS: OXYTOCIN 20 UNITS in LACTATED RINGER'S 1,000 ML IV SCH ×2 (13:13→21:40)
[2022-04-18] MEDS: SIMETHICONE 80 MG CHEW PO SCH ×3 (17:44→20:36)
[2022-04-18] MEDS: DOCUSATE SODIUM 100 MG CAP PO SCH (20:36)
[2022-04-19] MEDS ORDERED: diphenhydrAMINE Capsule 25 MG CAP PO PRN (04:09)
[2022-04-19] MEDS ORDERED: MEPERIDINE HCL 50 MG/ML CARP IV PRN (04:09)
[2022-04-19] MEDS ORDERED: PROMETHAZINE HCL 25 MG in SODIUM CHLORIDE 0.9% 50 ML IV PRN (04:09)
[2022-04-19] MEDS ORDERED: KETOROLAC 30 MG/ML VIAL IV PRN (04:09)
[2022-04-19] MEDS ORDERED: ONDANSETRON INJ 2 MG/ML 2 ML VIAL IV PRN (04:09)
[2022-04-19] MEDS ORDERED: diphenhydrAMINE 50 MG/ML VIAL IV PRN (04:09)
--- NOTE | 2022-04-19 06:48 | Obstetrical Progress Note ---
Date of Service April 19, 2022 Assessment & Plan (1) state: day #1 from section incision is not checked today as she is feeding the baby she is doing well no extremity pain we will encourage ambulation today Subjective Passing Gas:: Yes Diet Tolerance:: regular diet Lochia:: Small Current Pain Level(1-10): 0 Constitutional: + as per Subjective / HPI Physical Exam Constitutional WD/WN, vitals as above well developed and well nourished Respiratory normal respiratory effort, lungs clear to auscultation normal respiratory effort Cardiovascular RRR, no murmur, no edema Gastrointestinal (Abdomen) normal bowel sounds, soft, nontender, no hepatosplenomegaly Results & Data ([facility]) Vital Signs (Past 12 Hours) Vital Signs Temp Pulse Resp BP Pulse Ox O2 Del Method 04/19/22 04:15 97.9 F 62 18 96/53 L 97 Room Air 04/19/22 04:10 18 97 04/19/22 02:55 20 98 04/19/22 01:58 16 96 04/19/22 00:59 18 98 04/18/22 23:45 98.1 F 64 18 92/52 L 97 Room Air 04/18/22 23:56 20 97 04/18/22 23:00 18 98 04/18/22 22:00 18 98 04/18/22 20:00 98.4 F 65 16 92/45 L 97 Room Air 04/18/22 21:00 20 98 04/18/22 20:00 16 98 04/18/22 19:00 18 98
[2022-04-19 07:07] LABS: Basophils # (auto) 0.03 K/uL (0-0.2); Basophils % (auto) 0.3 %; Eosinophils # (auto) 0.05 K/uL (0-0.50); Eosinophils % (auto) 0.4 %; Hematocrit (blood only) 29.2 % (34.1-44.9); Hemoglobin 9.7 g/dl (12.0-16.0); Immature Granulocytes # (auto) 0.05 K/uL (0.00-0.02); Immature Granulocytes % (auto) 0.4 %; Lymphocytes # (auto) 2.05 K/uL (1.2-3.4); Lymphocytes % (auto) 17.4 %; Mean Corpuscular Hemoglobin 26.9 pg (25.0-34.0); Mean Corpuscular Hgb Conc 33.2 g/dL (32.0-36.0); Mean Corpuscular Volume 80.9 fL (80.0-100.0); Mean Platelet Volume 10.8 fL (9.4-12.3); Monocytes # (auto) 0.52 K/uL (0.24-0.82); Monocytes % (auto) 4.4 %; Neutrophils % (auto) 77.1 %; Platelet Count 248 K/uL (130-400); RDW Coefficient of Variation 13.3 % (11.5-14.5); RDW Standard Deviation 39.1 fL (36.4-46.3); Red Blood Count 3.61 M/uL (3.93-5.22)
--- NOTE | 2022-04-19 07:49 | Anesthesiology Progress Note ---
Date of Service April 19, 2022 Anesthesia Post Procedure Vital Signs Vital Signs: Temp Pulse Pulse Resp BP BP Pulse Ox 04/19/22 04:15 97.9 F 62 18 96/53 L 97 04/19/22 04:10 18 97 04/19/22 02:55 20 98 04/19/22 01:58 16 96 04/19/22 00:59 18 98 04/18/22 23:45 98.1 F 64 18 92/52 L 97 04/18/22 23:56 20 97 04/18/22 23:00 18 98 04/18/22 22:00 18 98 04/18/22 20:00 98.4 F 65 16 92/45 L 97 04/18/22 21:00 20 98 04/18/22 20:00 16 98 04/18/22 19:00 18 98 04/18/22 18:30 16 97 04/18/22 17:30 16 96 04/18/22 16:30 16 97 04/18/22 15:30 16 97 04/18/22 14:30 16 97 04/18/22 16:00 98.1 F 66 18 107/63 97 04/18/22 13:30 98.1 F 77 16 94/60 L 98 04/18/22 13:30 16 98 04/18/22 13:30 04/18/22 12:50 98.8 F 20 04/18/22 12:20 20 04/18/22 11:50 20 04/18/22 11:40 20 04/18/22 11:30 20 04/18/22 11:20 20 04/18/22 11:10 20 04/18/22 11:00 20 04/18/22 10:50 97.7 F 20 04/18/22 13:02 62 98 04/18/22 12:58 59 L 92/57 L 04/18/22 12:57 59 L 96 04/18/22 12:53 68 93 04/18/22 12:52 62 98 04/18/22 12:47 66 100 04/18/22 12:42 65 100 04/18/22 12:37 67 98 04/18/22 12:32 63 98 04/18/22 12:28 57 L 96/55 L 04/18/22 12:27 98 04/18/22 12:27 74 04/18/22 12:27 62 93 04/18/22 12:22 56 L 98 04/18/22 12:17 85 100 04/18/22 12:12 56 L 97 04/18/22 12:07 53 L 97 04/18/22 12:02 60 99 04/18/22 11:57 56 L 98/66 L 98 04/18/22 11:52 61 98 04/18/22 11:47 74 94/65 L 97 04/18/22 11:42 74 98 04/18/22 11:37 98 04/18/22 11:37 69 04/18/22 11:37 69 100/61 04/18/22 11:32 63 98 04/18/22 11:27 66 96/57 L 98 04/18/22 11:22 76 99 04/18/22 11:19 68 92/53 L 04/18/22 11:17 65 98 04/18/22 11:12 69 97 04/18/22 11:07 77 92/65 L 96 04/18/22 11:02 66 99 04/18/22 10:57 66 103/59 L 98 04/18/22 10:56 68 94 04/18/22 10:52 64 98 04/18/22 10:47 67 92/51 L 98 Pulse Ox O2 Del Method O2 Del Method 04/19/22 04:15 Room Air 04/19/22 04:10 04/19/22 02:55 04/19/22 01:58 04/19/22 00:59 04/18/22 23:45 Room Air 04/18/22 23:56 04/18/22 23:00 04/18/22 22:00 04/18/22 20:00 Room Air 04/18/22 21:00 04/18/22 20:00 04/18/22 19:00 04/18/22 18:30 04/18/22 17:30 04/18/22 16:30 04/18/22 15:30 04/18/22 14:30 04/18/22 16:00 Room Air 04/18/22 13:30 Room Air 04/18/22 13:30 04/18/22 13:30 98 Room Air 04/18/22 12:50 04/18/22 12:20 04/18/22 11:50 04/18/22 11:40 04/18/22 11:30 04/18/22 11:20 04/18/22 11:10 04/18/22 11:00 04/18/22 10:50 04/18/22 13:02 04/18/22 12:58 04/18/22 12:57 04/18/22 12:53 04/18/22 12:52 04/18/22 12:47 04/18/22 12:42 04/18/22 12:37 04/18/22 12:32 04/18/22 12:28 04/18/22 12:27 04/18/22 12:27 04/18/22 12:27 04/18/22 12:22 04/18/22 12:17 04/18/22 12:12 04/18/22 12:07 04/18/22 12:02 04/18/22 11:57 04/18/22 11:52 04/18/22 11:47 04/18/22 11:42 04/18/22 11:37 04/18/22 11:37 04/18/22 11:37 04/18/22 11:32 04/18/22 11:27 04/18/22 11:22 04/18/22 11:19 04/18/22 11:17 04/18/22 11:12 04/18/22 11:07 04/18/22 11:02 04/18/22 10:57 04/18/22 10:56 04/18/22 10:52 04/18/22 10:47 Pain Intensity Medial Abdomen: Pain Intensity: 3 Transfer of Care Handoff Completed per policy Notes Mental Status: alert / awake / arousable and participated in evaluation Nausea / Vomiting: adequately controlled Pain: adequately controlled Airway Patency, RR, SpO2: stable & adequate BP & HR: stable & adequate Hydration State: stable & adequate Neuraxial Anesthesia: was administered and sensory block resolved Anesthetic Complications: no major complications apparent and Pt Satisfied with anesthetic care
[2022-04-19] MEDS: FERROUS SULFATE 325 MG TAB PO SCH (08:20)
[2022-04-19] MEDS: DOCUSATE SODIUM 100 MG CAP PO SCH ×2 (08:20→20:04)
[2022-04-19] MEDS: oxyCODONE/ACETAMINOPHEN 5mg/325mg TAB PO PRN ×2 (08:20→14:57)
[2022-04-19] MEDS: IBUPROFEN 600 MG TAB PO PRN ×4 (08:20→23:52)
[2022-04-19] MEDS: SIMETHICONE 80 MG CHEW PO SCH ×4 (08:20→20:04)
[2022-04-19] MEDS: PRENATAL VITAMIN 1 TAB PO SCH (08:20)
[2022-04-19] MEDS: LACTATED RINGER'S 1,000 ML IV SCH ×4 (15:37→21:03)
[2022-04-19] MEDS ORDERED: bisacodyL 5 MG TABEC PO SCH (20:00)
[2022-04-20] MEDS: oxyCODONE/ACETAMINOPHEN 5mg/325mg TAB PO PRN ×2 (06:34→10:35)
[2022-04-20] MEDS: IBUPROFEN 600 MG TAB PO PRN ×2 (06:34→10:35)
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
[2022-04-20] MEDS ORDERED: MEASLES, MUMPS & RUBELLA VIRUS VIAL SQ ONE (06:50)
[2022-04-20 07:24] LABS: Hematocrit (blood only) 28.1 % (34.1-44.9); Hemoglobin 9.2 g/dl (12.0-16.0)
[2022-04-20] MEDS: PRENATAL VITAMIN 1 TAB PO SCH (08:23)
[2022-04-20] MEDS: FERROUS SULFATE 325 MG TAB PO SCH (08:23)
[2022-04-20] MEDS: DOCUSATE SODIUM 100 MG CAP PO SCH (08:23)
[2022-04-20] MEDS: SIMETHICONE 80 MG CHEW PO SCH (08:23)
[2022-04-20] MEDS ORDERED: bisacodyL 10 MG SUPP PR PRN (10:48)
--- NOTE | 2022-04-21 12:32 | Discharge Summary ---
Date of Service April 21, 2022 Admission HPI Per Admitting Provider Patient is a 27yowf who presents at 39+ weeks for elective repeat c/s. This has been uncomplicated. Previous delivery was 36 hours labor, unsuccessful push, nrfht and c/s. She declines [facility]. and Delivery Plans Previous *plans for repeat CS C/S SCHEDULED FOR 04/18/[address] LIU Rubella equivocal *needs MMR after delivery OB Labs: Blood Type A Positive 09/15/21 Antibody Screen NEGATIVE 09/15/21 Hemoglobin 12.1 g/dl (12.0-16.0) 02/02/22 Hematocrit 35.6 % (34.1-44.9) 02/02/22 Mean Corpuscular Volume 86.9 fL (80-100) 09/15/21 Platelet Count 327 K/uL (130-400) 09/15/21 Rubella IgG Antibody Equivocal (Immune) L 09/15/21 Rapid Plasma Reagin Nonreactive (Nonreactive) 02/02/22 Hepatitis B Surface Antigen. NON-REACTIVE (NON-REACTIVE) 09/15/21 Hepatitis C Antibody (EIA) NON-REACTIVE (NON-REACTIVE) 09/15/21 HIV (1&2) Ag and Ab Confirmation NON-REACTIVE (NON-REACTIVE) 09/15/21 Glucose 1 Hour 50 gm Load 120 mg/dl (70-130) 02/02/22 Maternal Serum Alpha Fetoprotein 34.3 ng/mL 11/10/21 OB Optional Labs: Chlamydia trachomatis RNA NOT DETECTED (NOT DETECTED) 09/15/21 Neisseria gonorrhoeae RNA NOT DETECTED (NOT DETECTED) 09/15/21 Thyroid Stimulating Hormone (TSH) 0.975 uIu/ml (0.300-4.500) 01/26/18 Alpha Fetoprotein Triple Screen SEE NOTE 11/10/21 Labs Reviewed: cf/sma-negative--mln cfdna-low risk--mln afp neg gbs neg Discharge Data Consultations 04/18/22 07:15 Consult Anesthesiology Stat Procedures Performed Operation Date: 04/18/22 08:55 Actual Procedures p Section (Delivery of Baby Through Abdominal Incision) Live female at 1017(Bilateral) - Kelley Liu MD, FACOG Hospital Course (1) Previous delivery affecting , antepartum: Plan Patient was admitted and underwent a repeat without complication, ebl--500cc. course uncomplicated--tolerated a regular diet, ambulated without difficulty, voided after removal of [place], tolerated oral pain meds. Desired d/c on POD#2. Instuctions reviewed. 6 week visit. D/c H/h 9.2/28.1 Coding Level of Care Code None Diagnoses Previous delivery affecting , antepartum O34.219
== END 2022-04-20 11:40 | disposition home or self-care (01) | DRG 788 ==
LOC: 4S1 06:56 → EDSTATUS 09:05 → 4E2 13:44

== ENCOUNTER 2024-04-19 05:27 | Inpatient (IN) ==
--- NOTE | 2024-04-03 14:50 | Anesthesiology Consultation ---
Date of Service April 03, 2024 Assessment & Plan (1) Encounter for pre-operative examination: - Infectious disease screening: Per assessment on 04/03/24- No known recent infectious disease contacts or current infectious disease symptoms. - Previous anesthesia issues: [place] abdomen when cut with initial c/s 2020 under spinal anesthesia > completed under general anesthesia. No noted similar issues with subsequent c/s 2022 (done at [facility] under neuraxial anesthesia without noted issues) Chart Review Chart Review: data entry associate initiated History Surgery Operation Date: 04/19/24 08:50 Proposed Procedures p Section (Delivery of Baby Through Abdominal Incision) - Clarisa Canales DO s with Bilateral Tubal Ligation - Clarisa Canales, Height/Weight Height: 5 ft 2 in Weight: 68.492 kg Allergies Allergy/AdvReac Type Severity Reaction Status Date / Time Penicillins Allergy Intermediate hives Verified 04/03/24 14:24 Medications Home Medications Medication Instructions Recorded Confirmed Last Taken 21-iron fu-folic acid 1 tab PO DAILY 09/15/23 04/03/24 Unknown [ Complete] Past Medical History Medical History ADHD (attention deficit hyperactivity disorder) No medications History of migraine Vitamin D deficiency Past Family History Family History Grandmother Cancer Other No family history of adverse response to anesthesia Denies family history of Ovarian cancer Prostate cancer Myocardial infarction Breast cancer Colorectal cancer Past Surgical History Surgical History History of anesthesia reaction [place] abdomen when cut with initial c/s 2020 under spinal anesthesia > completed under general anesthesia. No noted similar issues with subsequent c/s 2022 (done at [facility] under neuraxial anesthesia without noted issues) Hx of appendectomy 04/13/1819 Grade 1 view, MAC 3, ETT 7. S/P section 05/18/20, 03/2022 S/P wisdom tooth extraction Social History Smoking Status: Never smoker Do You Dip or Chew Tobacco: No Hx Alcohol Use: No alcohol intake frequency: a few times a month Hx Substance Use: No substance use type: does not use
--- NOTE | 2024-04-18 09:38 | History & Physical Report ---
Date of Service April 18, 2024 Assessment & Plan (1) Previous delivery affecting , antepartum: Plan: Plan for repeat section, bilateral tubal sterilization. Reviewed consent in detail. Questions answered. History of Present Illness Chief Complaint: planned section with tubal Primary Care Provider: Soniya Chahal, 29yo with EDC 04/25/24. Previous x2 *would like tubal at time of c/s. C/S WITH TUBAL SCHEDULED FOR 04/19/[address] SMITH AND DR. FLEMING ASSIST Hepatitis B non-immune Allergies Allergy/AdvReac Type Severity Reaction Status Date / Time Penicillins Allergy Intermediate hives Verified 04/18/24 09:07 Home Medications Medication Instructions Recorded Confirmed Type 21-iron fu-folic acid 1 tab PO DAILY 09/15/23 04/18/24 History [ Complete] Patient History Medical History ADHD (attention deficit hyperactivity disorder) No medications History of migraine Vitamin D deficiency Surgical History History of anesthesia reaction [place] abdomen when cut with initial c/s 2020 under spinal anesthesia > completed under general anesthesia. No noted similar issues with subsequent c/s 2022 (done at [facility] under neuraxial anesthesia without noted issues) Hx of appendectomy 04/13/1819 Grade 1 view, MAC 3, ETT 7. S/P section 05/18/20, 03/2022 S/P wisdom tooth extraction Family History Grandmother Cancer Other No family history of adverse response to anesthesia Denies family history of Ovarian cancer Prostate cancer Myocardial infarction Breast cancer Colorectal cancer Social History Smoking Status: Never smoker Second Hand Exposure: No; Do You Dip or Chew Tobacco: No; Hx Alcohol Use: No Hx Substance Use: No Preferred Language: Serbian Communication Ability: Effective Visual Impairment: Limited Hearing Ability: Normal Ase Master Mechanic Required: No Beliefs That Will Affect Care: None marital status: Single marital status details: ike Ni ([phone] Current Living Situation: Family and Significant Other current occupational status: employed current occupation: [employer] How many Children do You have: 2 Feels Safe at Home: Yes Childhood Exposure to Second-Hand Smoke: No Diet: regular Diet Comment: regular caffeine: Yes (Coffee and tea occasionally.) during the past year weight has: remained stable Dental Care, Regularly: Yes Physical Activity Frequency: Daily Seatbelt Use: always Sunscreen Use: No Assistive Devices: Glasses Review of Systems All systems reviewed & are unremarkable except as noted in HPI & below Physical Exam Constitutional: WD/WN, vitals as above Respiratory: normal respiratory effort, lungs clear to auscultation no respiratory distress Cardiovascular: Rate/Rhythm: regular rate and regular rhythm Gastrointestinal (Abdomen): Inspection/Auscultation: abdomen normal to inspection Percussion/Palpation: abdomen soft; abdomen nontender Gravid. No s/s chorio or abruption. Skin: no rashes, warm and dry Psychiatric: A+Ox3, euthymic affect Coding Level of Care Code None Diagnoses Previous delivery affecting , antepartum O34.219
[2024-04-19] MEDS ORDERED: SODIUM CHLORIDE 0.9% 100 ML IV PRN (05:33)
[2024-04-19] MEDS ORDERED: SODIUM CHLORIDE 0.9% 50 ML IV PRN (05:33)
[2024-04-19] MEDS: ACETAMINOPHEN 500 MG TAB PO SCH (06:34)
[2024-04-19] MEDS ORDERED: MoRPHine SULFATE PF 1 MG/ML 10 ML AMP/VIAL ONE (06:45)
[2024-04-19] MEDS ORDERED: fentaNYL citrate PF 100 MCG/2 ML VIAL ONE (06:45)
[2024-04-19] MEDS ORDERED: PHENYLEPHRINE HCL 25 MG/250 ML NSS IV ONE (06:45)
[2024-04-19] MEDS ORDERED: OXYTOCIN 10 UNITS/ML VIAL ONE (06:45)
[2024-04-19] MEDS ORDERED: ONDANSETRON INJ 2 MG/ML 2 ML VIAL ONE (06:57)
[2024-04-19] MEDS ORDERED: DEXAMETHASONE SOD INJ 4 MG/ML VIAL ONE (06:57)
[2024-04-19 07:05] LABS: Basophils # (auto) 0.03 K/uL (0.00-0.20); Basophils % (auto) 0.3 %; Hematocrit (blood only) 32.8 % (37.0-47.0); Hemoglobin 10.7 g/dl (12.0-16.0); Immature Granulocytes # (auto) 0.05 K/uL (0.01-0.20); Immature Granulocytes % (auto) 0.5 %; Lymphocytes # (auto) 2.59 K/uL (1.20-3.40); Lymphocytes % (auto) 25.3 %; Mean Corpuscular Hemoglobin 26.6 pg (25.0-34.0); Mean Corpuscular Hgb Conc 32.6 g/dL (32.0-36.0); Mean Corpuscular Volume 81.4 fL (80.0-100.0); Monocytes # (auto) 0.59 K/uL (0.11-0.59); Monocytes % (auto) 5.8 %; Neutrophils # (auto) 6.87 K/uL (1.40-6.50); Neutrophils % (auto) 67.1 %; Platelet Count 279 K/uL (130-400); RDW Coefficient of Variation 13.3 % (11.5-14.5); RDW Standard Deviation 39.4 fL (36.4-46.3); Red Blood Count 4.03 M/uL (4.20-5.40); White Blood Count 10.23 K/ul (4.8-10.8)
[2024-04-19] MEDS: SODIUM CHLORIDE 0.9% 1,000 ML IV SCH ×3 (07:05→09:46)
[2024-04-19] MEDS ORDERED: ePHEDrine sulfate 50 MG/ML AMP IV PRN (07:09)
[2024-04-19] MEDS ORDERED: NALBUPHINE HCL INJ 10 MG/ML AMP IV PRN (07:09)
[2024-04-19] MEDS ORDERED: NALOXONE HCL 0.4 MG/1 ML VIAL/CARP IV PRN (07:09)
[2024-04-19] MEDS ORDERED: diphenhydrAMINE 50 MG/ML VIAL IV PRN (07:09)
[2024-04-19] MEDS ORDERED: MoRPHine SULFATE 2 MG/ML CARP IV PRN (07:09)
[2024-04-19] MEDS ORDERED: HYDROmorphone INJ 0.5 MG/0.5 ML SYR IV PRN (07:09)
[2024-04-19] MEDS ORDERED: NALOXONE HCL 0.08 MG in SYRINGE 1.8 ML IV PRN (07:09)
[2024-04-19] MEDS ORDERED: ONDANSETRON INJ 2 MG/ML 2 ML VIAL IV PRN (07:09)
[2024-04-19] MEDS ORDERED: NALOXONE HCL 1 MG in SODIUM CHLORIDE 0.9% 1,000 ML IV PRN (07:09)
[2024-04-19] MEDS: CITRIC ACID/SODIUM CITRATE 15 ML UDC PO SCH (07:10)
[2024-04-19] MEDS ORDERED: NO NARCOTICS OR SEDATIVES SCH (07:15)
[2024-04-19] MEDS ORDERED: DC INTRASPINAL MORPHINE SCH (07:15)
--- NOTE | 2024-04-19 07:18 | History & Physical Bridge Note ---
Date of Service April 19, 2024 History & Physical Bridge Note I have examined the patient, reviewed the History & Physical and in the interval since the performance of the History & Physical I have noted the following changes of clinical significance: no changes noted
[2024-04-19] MEDS: ceFAZolin 2000MG 2,000 MG/15 ML SYR IV SCH (07:30)
[2024-04-19] MEDS ORDERED: ePHEDrine sulfate 50 MG/5 ML SYR ONE (08:06)
[2024-04-19 08:37] LABS: Base Excess Cord Arterial Bld -0.4 mEq/L (-9-1.8); Base Excess Cord Venous Blood -1.6 mEq/L (-7.7-1.9); CO2 Cord Arterial Blood 54 mmHg (39.1-73.5); Cord Venous Blood HCO3 23 mmol/L (18.4-26.8); Cord Venous Blood PCO2 38 mmHg (30.4-57.2); Cord Venous Blood PO2 28 mmHg (14.1-43.3); Cord Venous Blood pH 7.39 (7.20-7.44); HCO3 Cord Arterial Blood 27 mmol/L (19.7-28.5); O2 Saturation Cord Venous Bld < 60.0 % (<68); Oxygen Sat Cord Arterial Blood < 60.0 % (<60); PO2 Cord Arterial Blood < 20 mmHg (4.1-31.7); pH Cord Arterial Blood 7.31 (7.1-7.38)
--- NOTE | 2024-04-19 08:41 | Operative Report ---
Post Operative Report Pre & Post Diagnosis Operation Date: 04/19/24 07:30 Pre: History of section x 2, desire for sterilization Post: same I identified the patient and participated in the time-out.: Yes Procedure Operation Date: 04/19/24 07:30 Repeat Low Transverse section, bilateral tubal sterilization Surgeon DO Assistant Leighton Neal MD Quantitative Blood Loss (QBL) 153 Findings Consistent with Post-Op Diagnosis Specimens placenta, cord blood, cord gas Drains gomes clear yellow Anesthesia Type Spinal Complications none Disposition Accompanied Patient To Recovery: No Indications 29yo @ 39 04/02, h/o x 2, desire for sterilization. Description of Procedure The patient was seen in her labor and delivery room, risks benefits and alternatives to surgery were reviewed. Informed consent obtained. Questions were answered. She was taken to the operating room, spinal anesthesia was administered. She was then prepared and draped in the usual sterile fashion in the supine position with a leftward tilt. Timeout was confirmed. A Pfannenstiel skin incision was made with a scalpel, and carried through to the underlying layer of fascia. Fascia was nicked at midline, and this incision was extended bilaterally. The superior aspect of the fascial incision was grasped with Yue clamps x2, elevated off the underlying rectus abdominis muscles, and dissected sharply and bluntly. In similar fashion, the inferior aspect of the fascial incision was dissected. The rectus abdominis muscles were , and the peritoneum was entered bluntly digitally. This was extended bilaterally. The bladder flap was taken down carefully using Metzenbaum scissors. Using a new scalpel, a low transverse uterine incision was created. Clear amniotic fluid noted. The was delivered from a cephalic presentation. The head delivered, followed by shoulders and body. Spontaneous cry on the field. The cord was doubly clamped and cut, and the was handed off to the waiting shipping team leader. A segment was retained for cord gases. Cord blood was obtained. The placenta was delivered spontaneously intact. The uterus was ext eriorized, and cleared of all clots and debris. The hysterotomy incision was reapproximated using 0 Vicryl in a running locked stitch. A second layer of the same suture was used to imbricate the incision. Posterior uterus was evaluated and normal. Bilateral tubes identified to fimbria, transected from mesosalpinx and uterus with Ligasure handheld device. Passed off for path. Excellent hemostasis. The uterus was returned to the abdomen, and gutters were cleared of clots and debris. Excellent hemostasis was observed. The fascial incision was reapproximated using 0 Vicryl in a running stitch. The subcutaneous tissue was irrigated, and reapproximated using 2-0 plain gut in a running stitch. The skin was reapproximated using 4-0 Vicryl in a running subcuticular stitch. Steri-Strips and a bandage were applied. The patient tolerated the procedure well, and will be taken to the recovery area in stable and good condition. I attest to the content of the Intraoperative Record and any orders documented therein. Any exceptions are noted below. OB Procedure Charges [id number] Add on Tubal for C/S
[2024-04-19] MEDS ORDERED: CALCIUM CARBONATE 500 MG CHEWABLE TAB PO PRN (08:54)
[2024-04-19] MEDS ORDERED: SENNA 8.6 MG TAB PO PRN (08:54)
[2024-04-19] MEDS ORDERED: HYDROCORTISONE ACETATE 25 MG SUPP PR PRN (08:54)
[2024-04-19] MEDS ORDERED: BENZOCAINE 20% SPRY 85 APPLN/85 GM CAN EXT PRN (08:54)
[2024-04-19] MEDS ORDERED: MAGNESIUM HYDROXIDE SUSP 30 ML UDC PO PRN (08:54)
--- NOTE | 2024-04-19 09:16 | Anesthesiology Progress Note ---
Date of Service April 19, 2024 Anesthesia Post Procedure Vital Signs Vital Signs: Temp Pulse Resp BP Pulse Ox 04/19/24 09:13 64 99 04/19/24 09:12 77 94 04/19/24 09:08 67 100 04/19/24 09:06 64 99/59 L 04/19/24 09:03 64 100 04/19/24 08:58 69 100 04/19/24 08:56 72 111/73 04/19/24 08:53 85 100 04/19/24 08:48 65 100 04/19/24 08:44 64 107/61 04/19/24 08:43 62 100 04/19/24 07:19 36.7 C 71 18 101/67 04/19/24 05:41 36.7 C 18 04/19/24 05:40 76 110/73 Transfer of Care Handoff Completed per policy Notes Mental Status: alert / awake / arousable and participated in evaluation Patient Amnestic to Procedure: Yes Nausea / Vomiting: adequately controlled Pain: adequately controlled Airway Patency, RR, SpO2: stable & adequate BP & HR: stable & adequate Hydration State: stable & adequate Neuraxial Anesthesia: was administered and sensory block is resolving Anesthetic Complications: no major complications apparent and Pt Satisfied with anesthetic care
[2024-04-19] MEDS: KETOROLAC 30 MG/ML VIAL IV SCH (09:28)
[2024-04-19] MEDS: DIPHTHER/TETAN/PERTUS Vaccine (Tdap, Adol/Adult) 0.5mL IM ONE (09:45)
[2024-04-19] MEDS: MoRPHine SULFATE PF 1 MG/ML 10 ML AMP/VIAL INT SPINAL ONE (09:45)
[2024-04-19] MEDS: OXYTOCIN 20 UNITS/LR 1,002 ML IV SCH (10:39)
[2024-04-19] MEDS: SIMETHICONE 80 MG CHEW PO SCH (12:36)
[2024-04-19] MEDS: ACETAMINOPHEN 325 MG TAB PO SCH (14:46)
[2024-04-19] MEDS: DOCUSATE SODIUM 100 MG CAP PO SCH (20:27)
[2024-04-20] MEDS ORDERED: PROMETHAZINE 12.5 MG/50.5 ML BAG IV PRN (01:09)
[2024-04-20] MEDS ORDERED: ONDANSETRON INJ 2 MG/ML 2 ML VIAL IV PRN (01:09)
[2024-04-20] MEDS ORDERED: HYDROmorphone INJ 0.5 MG/0.5 ML SYR IV PRN (01:09)
[2024-04-20] MEDS ORDERED: oxyCODONE HCL IR 5 MG TAB (IMMEDIATE RELEASE) PO PRN (01:09)
[2024-04-20] MEDS ORDERED: diphenhydrAMINE 50 MG/ML VIAL IV PRN (01:09)
[2024-04-20] MEDS ORDERED: diphenhydrAMINE Capsule 25 MG CAP PO PRN (01:09)
[2024-04-20 07:21] LABS: Basophils # (auto) 0.04 K/uL (0.00-0.20); Basophils % (auto) 0.3 %; Eosinophils # (auto) 0.05 K/uL (0.00-0.50); Eosinophils % (auto) 0.3 %; Hematocrit (blood only) 29.3 % (37.0-47.0); Hemoglobin 9.6 g/dl (12.0-16.0); Immature Granulocytes # (auto) 0.09 K/uL (0.01-0.20); Immature Granulocytes % (auto) 0.6 %; Lymphocytes # (auto) 3.21 K/uL (1.20-3.40); Lymphocytes % (auto) 22.1 %; Mean Corpuscular Hemoglobin 26.5 pg (25.0-34.0); Mean Corpuscular Hgb Conc 32.8 g/dL (32.0-36.0); Mean Corpuscular Volume 80.9 fL (80.0-100.0); Monocytes # (auto) 0.79 K/uL (0.11-0.59); Monocytes % (auto) 5.4 %; Neutrophils # (auto) 10.36 K/uL (1.40-6.50); Neutrophils % (auto) 71.3 %; Platelet Count 244 K/uL (130-400); RDW Coefficient of Variation 13.2 % (11.5-14.5); RDW Standard Deviation 38.6 fL (36.4-46.3); Red Blood Count 3.62 M/uL (4.20-5.40); White Blood Count 14.54 K/ul (4.8-10.8)
--- NOTE | 2024-04-20 08:08 | Obstetrical Progress Note ---
Date of Service April 20, 2024 Assessment & Plan (1) Encounter for assessment: Plan: Patient is POD 1 s/p rLTCS and doing well - Eating well, voiding well, ambulating well - vitals reviewed and within normal limits - pain well controlled with analgesics - OOB, ambulation, diet progression as tolerated - Blood type: A+, GBS neg, rubella immune - Plan to discharge tomorrow - After discharge, 6 week follow up with OBGYN Admission and Anticipated Discharge Date Admission Date: April 19, 2024 Supervising Physician Co-Signing Physician Notes Resident Physician Supervision Note: I was present with Dr. Jha during the history and exam. I discussed the case with the resident and agree with the findings and plan as documented in the note. Any exceptions or clarifications are listed here: [None] Documented By: Bruna Odom MD, FACOG Subjective 29 yo post-operative day 1 s/p rLTCS Ambulation: ambulating normally Voiding: no voiding problems Passing Gas:: Yes Diet Tolerance:: regular diet Lochia:: Small Feeding Type:: breast feeding Current Pain Level: 0/10 Resting comfortably this AM in NAD. Denies LONG, CP, SOB, N/V/D, LE pain/swelling. Physical Exam Physical Exam: General: patient resting comfortably, NAD, non-toxic in appearance, answers questions appropriately. Skin: warm, dry, intact HEENT: NC/AT, anicteric sclera, conjunctiva without injection, moist mucus membranes. Heart: +S1/S2, regular, no m/r/g Lungs: equal air entry bilaterally, no rales/rhonchi/wheezes Abd: +BS, soft, NT/ND, uterine fundus firm at umbilicus, caesarean incision clean, healing w/o erythema Ext: warm, no clubbing/cyanosis or edema, Beba's neg. Neuro: nonfocal, speech intact, no facial droop, moving all extremities. Results & Data Vital Signs (Past 12 Hours) Vital Signs Temp Pulse Resp BP Pulse Ox O2 Del Method 04/20/24 03:53 36.7 C 61 16 95/60 L 98 Room Air 04/20/24 02:00 16 98 04/20/24 01:00 18 99 04/20/24 00:00 16 99 04/19/24 23:22 37.1 C 60 16 105/67 97 Room Air 04/19/24 23:01 16 98 04/19/24 22:00 16 99 04/19/24 21:00 16 98 04/19/24 20:44 16 99 Resident Activity Tracking Resident Involvement: Resident Care Provided Care Provided: OB Delivery
[2024-04-20] MEDS: FERROUS SULFATE 325 MG TAB PO SCH (08:20)
[2024-04-20] MEDS: PRENATAL VITAMIN 1 TAB PO SCH (08:21)
[2024-04-20] MEDS: IBUPROFEN 600 MG TAB PO SCH (08:22)
[2024-04-20] MEDS ORDERED: KETOROLAC 30 MG/ML VIAL IV PRN (08:38)
[2024-04-20] MEDS: bisacodyL 5 MG TABEC PO SCH (20:50)
[2024-04-20 23:07] VITALS: RESP 16
[2024-04-21 07:00] LABS: Hematocrit (blood only) 30.6 % (37.0-47.0); Hemoglobin 9.7 g/dl (12.0-16.0)
[2024-04-21 07:40] VITALS: PULSE 68; TEMP 98.1; O2SAT 98
--- NOTE | 2024-04-21 08:02 | Obstetrical Progress Note ---
Date of Service April 21, 2024 Assessment & Plan (1) Encounter for assessment: POD#2 doing well. Pain controlled with PO pain medications. Incision CDI. DC instructions reviewed. DC home, followup 6w. Rx Percocet #10 tabs sent to [facility]. Subjective Ambulation: ambulating normally Voiding: no voiding problems Diet Tolerance:: regular diet Lochia:: Moderate Review of Systems All systems reviewed & are unremarkable except as noted in HPI & below Physical Exam Constitutional WD/WN, vitals as above no acute distress Respiratory normal respiratory effort Cardiovascular Rate/Rhythm: regular rate and regular rhythm Gastrointestinal (Abdomen) Inspection/Auscultation: abdomen normal to inspection; abdomen not distended Percussion/Palpation: abdomen soft Genitourinary OB Exam Abdomen: + fundal height Fundus: + firm; not tender Results & Data Vital Signs (Past 12 Hours) Vital Signs Temp Pulse Resp BP BP Pulse Ox O2 Del Method 04/21/24 07:21 36.7 C 68 16 111/75 98 Room Air 04/21/24 02:20 36.8 C 77 16 105/69 97 Room Air 04/20/24 23:06 36.9 C 70 16 105/67 98 Room Air
[2024-04-21] MEDS ORDERED: IBUPROFEN 600 MG TAB PO PRN (08:38)
[2024-04-21] MEDS ORDERED: bisacodyL 10 MG SUPP PR PRN (08:38)
[2024-04-21 10:32] VITALS: BP 105/67
[2024-04-21] MEDS ORDERED: ACETAMINOPHEN 325 MG TAB PO PRN (14:38)
--- NOTE | 2024-04-23 17:25 | Discharge Summary ---
Date of Service April 23, 2024 Admission HPI Per Admitting Provider 29yo with EDC 04/25/24. Previous x2 *would like tubal at time of c/s. C/S WITH TUBAL SCHEDULED FOR 04/19/[address] CANALES AND DR. BERNADETTE STARKS Hepatitis B non-immune Admission Exam (Per Admitting) Constitutional WD/WN, vitals as above no acute distress Respiratory normal respiratory effort, lungs clear to auscultation normal respiratory effort; no respiratory distress Cardiovascular Rate/Rhythm: regular rate and regular rhythm Gastrointestinal (Abdomen) Inspection/Auscultation: abdomen normal to inspection; abdomen not distended Percussion/Palpation: abdomen soft; abdomen nontender Skin no rashes, warm and dry Psychiatric A+Ox3, euthymic affect Genitourinary OB Exam Abdomen: + fundal height Discharge Data Consultations 04/19/24 05:29 Consult Anesthesiology Stat Procedures Performed Operation Date: 04/19/24 07:30 Actual Procedures p Section (Delivery of Baby Through Abdominal Incision) with delivery viable male at 0801 - Clarisa Canales DO s with Bilateral Tubal Ligation(Bilateral) - Clarisa Canales DO Hospital Course (1) Encounter for assessment: Patient is POD 1 s/p rLTCS and doing well - Eating well, voiding well, ambulating well - vitals reviewed and within normal limits - pain well controlled with analgesics - OOB, ambulation, diet progression as tolerated - Blood type: A+, GBS neg, rubella immune - Plan to discharge tomorrow - After discharge, 6 week follow up with OBGYN Coding Level of Care Code None Diagnoses Encounter for assessment Z39.2
== END 2024-04-21 13:34 | disposition home or self-care (01) | DRG 785 ==
LOC: 4S1 05:27 → EDSTATUS 08:50 → 4E2 11:00
PROC: M.PPTLD (2024-04-19 07:30)
DX: Z37.0 Single live birth; Z30.2 Encounter for sterilization; O34.211 Maternal care for low transverse scar from previous cesarean delivery; Z88.0 Allergy status to penicillin; Z3A.39 39 weeks gestation of pregnancy